=== PATIENT | male | born 1995 | race Hispanic/Latino ===

== ENCOUNTER 2021-09-12 20:31 | Emergency (ER) | payer BC, SELFPAY ==
[2021-09-12 21:00] VITALS: BP 156/97; PULSE 68; RESP 18; TEMP 36.6; O2SAT 100; BMI 32.3
--- NOTE | 2021-09-12 21:50 | ED_ITS ---
HPI - Headache General Chief Complaint: Headache Stated Complaint: BP High Time Seen by Provider: 09/12/21 21:30 Mode of arrival: Ambulatory Limitations: no limitations History of Present Illness HPI Narrative: This is a 26-year-old male comes to the emergency department with complaint of headache that was sudden onset about an hour prior to arrival. He has had a history of migraines but he states usually they are little bit more gradual. It is on the side side is migraine but is a bit more intense. He also states he usually gets speckles or vision changes prior to his migraines which he did not today. He did not have any syncope he has not any fevers. He does not have any vision changes. No difficulty with speech. No new numbness, tingling or weakness. Patient has some residual tingling in his right arm after having inj ury and surgical repair to that arm. He has not had any changes with gait. He did have some nausea and vomiting. He denies chest pain or shortness of breath. No bowel or bladder incontinence. No other GI or urinary symptoms. Has a history of hypertension since age 6 and was possibly an Arb with hydrochlorothiazide combination. Patient does not recall the exact medication. He has been out of it for several months. He did have a return to work physical with quite a bit of lab work and evaluation and was cleared to return to work. He states he was prescribed medication for his hypertension at this time but has not filled it since. Patient states no other surgeries. No allergies to m edications besides lisinopril. No tobacco, occasional alcohol on a once weekly basis. THC but no other illicit. He is accompanied by his . He states he does not have any other known comorbidities or disease process from his hypertension with no visual or retinopathy or renal history. Related Data Previous Rx's Medication Instructions Recorded hydrochlorothiazide 25 mg tablet 25 mg PO DAILY #30 tab 09/13/21 Allergies Allergy/AdvReac Type Severity Reaction Status Date / Time lisinopril AdvReac Verified 09/12/21 21:05 Review of Systems Review of Systems ROS Unobtainable: All systems reviewed & are unremarkable except as noted in HPI and below Patient History Social History Smoking Status: Never smoker Smoking Status: Never smoker alcohol intake frequency: 0-2 drinks per day Substance Use Type: marijuana Exam Narrative Exam Narrative: GEN: well nourished, well appearing male, alert and oriented x 3, patient appears to be in mild distress. HEENT: Atraumatic, pupils are equal round reactive to light, extraocular movements are intact, mild photophobia, nares are clear, TMs are clear with no fluid, there is no conjunctival pallor. Throat is clear without any exudates, erythema, tonsillar enlargement or uvular deviation, no facial droop. Full range of motion. Negative Kernig's and Brudzinski. HEART: Regular rate and rhythm without murmur, clicks, rubs. LUNGS:Lungs clear to auscultation, no wheezes, rales, crackles, chest moves symmetrically ABD:bowel sounds normal, soft, non-tender, no guarding, rebound, rigidity, no masses noted, no hepatosplenomegaly :No CVA tenderness MSCL: Non-tender, no muscle atrophy, muscles strength 5/5 upper and lower extremities, full range of motion, normal gait NEURO:CN 2-12 intact, sensation normal, reflexes 2/4 upper and lower extremities . finger nose finger test normal, heel persaud test normal, romberg normal SKIN: No rash or skin changes. Initial Vital Signs Initial Vital Signs: Vital Signs Temperature 97.8 F 09/12/21 21:00 Pulse Rate 68 09/12/21 21:00 Respiratory Rate 18 09/12/21 21:00 Blood Pressure 156/97 H 09/12/21 21:00 Pulse Oximetry 100 09/12/21 21:00 Scores GCS [place] coma scale eye opening: Spontaneous [place] coma scale verbal response: Orientated [place] coma scale motor response: Obey commands [place] coma scale total score: 15 Course Orders Ordered: ED Orders 09/12/21 21:45 Basic Metabolic Panel Stat Complete Blood Count AUTO DIFF Stat 09/12/21 22:21 CT angio head and neck Stat 09/13/21 00:15 COVID19 -Nasal swab/Pre-Proc Stat Discontinued Medications Dexamethasone (Dexamethasone 10 Mg/Ml Vial) 10 mg IV NOW ONE Stop: 09/12/21 22:22 Last Admin: 09/12/21 23:40 Dose: 10 mg Documented by: VIOLETA Hydrochlorothiazide (Hydrochlorothiazide 25 Mg Tablet) 25 mg PO NOW ONE Stop: 09/12/21 22:24 Last Admin: 09/12/21 23:40 Dose: 25 mg Documented by: VIOLETA Sodium Chloride (Normal Saline 0.9%) 1,000 mls @ 1,000 mls/hr IV BOLUS ONE Stop: 09/12/21 23:20 Last Infusion: 09/13/21 00:40 Dose: 0 mls/hr Documented by: Admin: 09/12/21 23:40 Dose: 1,000 mls/hr Documented by: VIOLETA Ketorolac Tromethamine (Ketorolac 30 Mg/Ml Vial) 30 mg IV NOW ONE Stop: 09/12/21 23:20 Last Admin: 09/12/21 23:39 Dose: 30 mg Documented by: VIOLETA Metoclopramide HCl (Metoclopramide 10 Mg/2 Ml Inj) 10 mg IV NOW ONE Stop: 09/12/21 22:22 Last Admin: 09/12/21 23:40 Dose: 10 mg Documented by: VIOLETA Reevaluation(s) Reevaluation #1: patient still has headache. Reviewed labs and imaging. CT angio was negative. Patient was given Toradol. Reevaluation #2: Patient feels much improved. He had improvement of his blood pressure but then increased back to same range. He is unsure exactly what medication he was on but is open to at least restarting hydrochlorothiazide. Time: 00:41 Vital Signs Vital signs: Vital Signs - 8 hr 09/12/21 21:00 09/12/21 23:38 09/12/21 23:39 Temperature 97.8 F Pulse Rate 68 72 69 Respiratory Rate 18 Blood Pressure 156/97 H 134/76 Pulse Oximetry 100 99 99 09/13/21 00:36 09/13/21 01:02 Temperature Pulse Rate 70 85 Respiratory Rate 18 16 Blood Pressure 162/94 H 136/72 Pulse Oximetry 100 98 MDM - Headache Lab Data Result diagrams: 09/12/21 21:45 09/12/21 21:45 Labs: Lab Results 09/12/21 09/12/21 09/13/21 Range/Units 21:45 21:45 00:15 WBC 11.7 H (4.5-11.0) X10^3/uL RBC 5.02 (4.5-5.9) X10^6/uL Hgb 15.4 (13.5-17.5) g/dL Hct 44.5 (41-53) % MCV 88.6 (80-100) fL MCH 30.7 (26-34) PG MCHC 34.6 (30-36) % RDW 12.8 (11.6-14.8) % Plt Count 282 (150-400) X10^3/uL Neut % (Auto) 86.6 H (50-75) % Lymph % (Auto) 8.8 L (25-40) % [place] % (Auto) 3.5 (3-14) % Eos % (Auto) 0.7 L (2-4) % Baso % (Auto) 0.4 (0-2) % Neut # (Auto) 05871 H (0417-2985) /uL Lymph # (Auto) 1000 L (8437-0314) /uL [place] # (Auto) 400 (0-900) /uL Eos # (Auto) 100 (0-450) /uL Baso # (Auto) 0 (0-100) /uL Sodium 138 (137-145) mmol/L Potassium 3.8 (3.4-5.1) mmol/L Chloride 102 (98-107) mmol/L Carbon Dioxide 30 (22-32) mmol/L BUN 17 (9-20) mg/dL Creatinine 0.85 (0.66-1.25) mg/dL Estimated GFR > 60.0 (>60) mL/min BUN/Creatinine Ratio 20.0 (6-22) Glucose 115 H (70-100) mg/dL Calcium 10.0 (8.4-10.2) mg/dL SARS-CoV-2 (PCR) Negative (Negative) Imaging Data CTA - brain/neck: Radiologist's Impression: [address] [address] [address] Scan Report Signed Patient: Ravi Awad MR#: [id number] : 1995 Acct:[id number] Age/Sex: 26 / M Date of Service: 09/12/21 Loc: ED Accession Number: [id number] ?? Procedure: CT angio head and neck Ordering Provider: Lacey Wood D.O. PROCEDURE:? CT ANGIO HEAD AND NECK ? INDICATIONS:? beaver, sudden onset, htn hx since age 6 ? TECHNIQUE:? Pre-contrast 4.5 mm thick sections acquired from the foramen magnum to the vertex.? After the administration of intravenous contrast, 1 mm thick sections acquired from the aortic arch through the [place] of [place].? Post-contrast 4.5 mm thick sections then re- acquired from the foramen magnum to the vertex.? 3-dimensional maximum-intensity- projection (MIP) and/or volume rendering reformats were acquired of the central intracranial vasculature and neck separately. ? COMPARISON:? None. ? FINDINGS:? Image quality:? Excellent.? ? BRAIN:? CSF spaces:? Basal cisterns are patent.? No extra-axial fluid collections.? Ventricles are normal in size and shape.? ? Brain:? No intracranial hemorrhage, mass, or mass effect.? Scott-white matter interface appears preserved.? No abnormal intracranial enhancement. ? Skull and face:? Calvarium and facial bones appear intact, without suspicious lesions.? Orbits appear normal.? ? Sinuses:? Sinuses and mastoids are clear.? ? HEAD CT ANGIOGRAPHY:? Anterior circulation:? Intracranial internal carotid arteries are normal in size and appear patent bilaterally.? The paired anterior cerebral arteries appear patent bilaterally.? The anterior communicating artery also appears patent. The middle cerebral arteries appear patent bilaterally.? No high-grade stenosis, occlusion, or filling defects.? No cerebral aneurysms identified. ? Posterior circulation:? Visualized portions of the vertebral arteries d emonstrate normal caliber, and join to form a patent basilar artery.? The posterior cerebral arteries appears patent bilaterally.? No high-grade stenosis, occlusion, or filling defects.? No cerebral aneurysms identified. ? NECK CT ANGIOGRAPHY:? Carotid system:? The great vessels demonstrate a conventional anatomy as they arise from the aortic arch.? The origins of the common carotid arteries appear patent.? The common carotid arteries demonstrate normal caliber and courses.? The bifurcation scarlet ons are both widely patent.? The internal carotid arteries demonstrate normal calibers and courses.? ? Posterior circulation:? The origins of the vertebral arteries both appear patent.? The more superior extracranial portions of both vertebral arteries also demonstrate normal courses and calibers.? They join to form a patent basilar artery.? ? Soft tissues:? Visualized neck soft tissues demonstrate no suspicious abnormalities.? ? Bones:? No suspicious bony lesions.? Visualized cervical spine demonstrates straightening of the cervical lordosis.? ? ? IMPRESSION:? ? 1. No acute intracranial abnormality. ? 2. No intracranial aneurysm identified. ? 3. No high-grade stenosis or occlusion of the head and neck arteries or central intracranial arteries.? ? Any quantitative measurements of stenosis were performed using NASCET criteria.? ? ? Dictated by: Giuliano Real M.D. on 09/12/2021 at 23:10 ? ? Approved by: Giuliano Real M.D. on 09/12/2021 at 23:15?? MDM Narrative Medical decision making narrative: This is a 26-year-old female comes on with sudden onset of headache, hypertension which is chronic and persistent since age of 6 which has not been treated recently. Patient does have a history of migraines the location is typical but the fast onset is atypical and it is somewhat stronger than normal. He has had some nausea and vomiting. No fevers or other suspicious infectious causes appreciated, no acute neurologic changes he does have a history of migraine Patient's labs are negative. Patient presented within [address] head and neck angio are negative for obvious bleed, aneurysm or other jose angel or changes. I suspect that patient is having a migraine. He responded well to Reglan, Toradol and fluids. He was given a dose of hydrochlorothiazide he knows he took some had a blood pressure medication that was a combination of HCTZ and another medication. Return precautions discussed all questions answered. Discharge Plan Departure Patient Disposition: Home Clinical Impression: Headache, Hypertension Instructions: DI for Headache Activity Restrictions/Additional Instructions: Follow-up with your physician for recheck. It's important for you to take your blood pressure medication regularly as allowing it to be elevated over long periods of time will slowly cause injury to the blood vessels in your brain, heart and kidneys. I would recommend restarting your blood pressure medication. Prescription for hydrochlorothiazide was sent to [facility] Please return for severe headaches, lightheadedness or passing out, persistent vomiting, new numbness, tingling or weakness, or other new or concerning symptoms. Prescriptions: New hydrochlorothiazide 25 mg tablet 25 mg PO DAILY Qty: 30 0RF Stand Alone Forms: Work Release Note
--- NOTE | 2021-09-12 22:21 | DI.CT.S_ITS ---
PROCEDURE: CT ANGIO HEAD AND NECK INDICATIONS: beaver, sudden onset, htn hx since age 6 TECHNIQUE: Pre-contrast 4.5 mm thick sections acquired from the foramen magnum to the vertex. After the administration of intravenous contrast, 1 mm thick sections acquired from the aortic arch through the [place] of [place]. Post-contrast 4.5 mm thick sections then re-acquired from the foramen magnum to the vertex. 3-dimensional yvjaiyg-rzxtaejki-lnkjrjbbfx (MIP) and/or volume rendering reformats were acquired of the central intracranial vasculature and neck separately. COMPARISON: None. FINDINGS: Image quality: Excellent. BRAIN: CSF spaces: Basal cisterns are patent. No extra-axial fluid collections. Ventricles are normal in size and shape. Brain: No intracranial hemorrhage, mass, or mass effect. Scott-white matter interface appears preserved. No abnormal intracranial enhancement. Skull and face: Calvarium and facial bones appear intact, without suspicious lesions. Orbits appear normal. Sinuses: Sinuses and mastoids are clear. HEAD CT ANGIOGRAPHY: Anterior circulation: Intracranial internal carotid arteries are normal in size and appear patent bilaterally. The paired anterior cerebral arteries appear patent bilaterally. The anterior communicating artery also appears patent. The middle cerebral arteries appear patent bilaterally. No high-grade stenosis, occlusion, or filling defects. No cerebral aneurysms identified. Posterior circulation: Visualized portions of the vertebral arteries demonstrate normal caliber, and join to form a patent basilar artery. The posterior cerebral arteries appears patent bilaterally. No high-grade stenosis, occlusion, or filling defects. No cerebral aneurysms identified. NECK CT ANGIOGRAPHY: Carotid system: The great vessels demonstrate a conventional anatomy as they arise from the aortic arch. The origins of the common carotid arteries appear patent. The common carotid arteries demonstrate normal caliber and courses. The bifurcation regions are both widely patent. The internal carotid arteries demonstrate normal calibers and courses. Posterior circulation: The origins of the vertebral arteries both appear patent. The more superior extracranial portions of both vertebral arteries also demonstrate normal courses and calibers. They join to form a patent basilar artery. Soft tissues: Visualized neck soft tissues demonstrate no suspicious abnormalities. Bones: No suspicious bony lesions. Visualized cervical spine demonstrates straightening of the cervical lordosis. IMPRESSION: 1. No acute intracranial abnormality. 2. No intracranial aneurysm identified. 3. No high-grade stenosis or occlusion of the head and neck arteries or central intracranial arteries. Any quantitative measurements of stenosis were performed using NASCET criteria. Dictated by: Giuliano Real M.D. on 09/12/2021 at 23:10 Approved by: Giuliano Real M.D. on 09/12/2021 at 23:15
[2021-09-12 22:31] LABS: Add Manual Diff / Slide Review NO; Basophils Absolute Auto 0 /uL (0-100); Basophils Percent Auto 0.4 % (0-2); Eosinophils Absolute Auto 100 /uL (0-450); Eosinophils Percent Auto 0.7 % (2-4); Hematocrit 44.5 % (41-53); Hemoglobin 15.4 g/dL (13.5-17.5); Lymphocytes Absolute Auto 1000 /uL (1100-4500); Lymphocytes Percent Auto 8.8 % (25-40); Mean Corpuscular HGB Conc 34.6 % (30-36); Mean Corpuscular Hemoglobin 30.7 PG (26-34); Mean Corpuscular Volume 88.6 fL (80-100); Monocytes Absolute Auto 400 /uL (0-900); Monocytes Percent Auto 3.5 % (3-14); Neutrophils Absolute Auto 10200 /uL (1500-7000); Neutrophils Percent Auto 86.6 % (50-75); Platelet Count 282 X10^3/uL (150-400); Red Blood Cell Count 5.02 X10^6/uL (4.5-5.9); Red Cell Distribution Width 12.8 % (11.6-14.8); White Blood Cell Count 11.7 X10^3/uL (4.5-11.0)
[2021-09-12 22:35] LABS: Blood Urea Nitrogen 17 mg/dL (9-20); Carbon Dioxide 30 mmol/L (22-32); Chloride 102 mmol/L (98-107); Estimated Glomerular Filt Rate > 60.0 mL/min (>60); Glucose 115 mg/dL (70-100); HEMOLYSIS < 15 (0-50); Potassium 3.8 mmol/L (3.4-5.1); Sodium 138 mmol/L (137-145)
[2021-09-12 23:38] VITALS: PULSE 72; O2SAT 99
[2021-09-12 23:39] VITALS: BP 134/76; PULSE 69; O2SAT 99
[2021-09-12] MEDS: KETOROLAC 30 MG/ML VIAL IV (23:39)
[2021-09-12] MEDS: METOCLOPRAMIDE 10 MG/2 ML INJ IV (23:40)
[2021-09-12] MEDS: DEXAMETHASONE 10 MG/ML VIAL IV (23:40)
[2021-09-12] MEDS: SODIUM CHLORIDE 0.9% 1,000 ML 1000 ML IV (23:40)
[2021-09-12] MEDS: hydroCHLOROthiazide 25 MG TABLET PO (23:40)
[2021-09-13 00:36] VITALS: BP 162/94; PULSE 70; RESP 18; O2SAT 100
[2021-09-13 00:52] LABS: COVID19 -Nasal RAPID Negative (Negative)
[2021-09-13 01:02] VITALS: BP 136/72; PULSE 85; RESP 16; O2SAT 98
== END 2021-09-13 00:50 | disposition home or self-care (01) ==
PROVIDERS: Emergency Provider Emergency Medicine
DX: R51.9 Headache, unspecified (principal); I10 Essential (primary) hypertension; Z20.822 Contact with and (suspected) exposure to COVID-19
CPT/HCPCS: 36415; 70496; 70498; 80048; 85025; 87635; 96361; 96374; 96375; 99284; C9803; J1100; J1885; J2765; Q9967

== ENCOUNTER 2022-07-20 17:30 | Emergency (ER) | payer SELFPAY ==
[2022-07-20 17:47] VITALS: BP 149/96; PULSE 79; RESP 20; TEMP 36.6; O2SAT 100
--- NOTE | 2022-07-20 23:22 | ED.BACK ---
HPI - Back Pain/Injury General Chief Complaint: Back Pain/Injury Stated Complaint: back pain, no known injury Time Seen by Provider: 07/20/22 23:22 Source: patient History of Present Illness HPI Narrative: Patient is a 27-year-old male history of hypertension but not taking medication presenting today with right-sided back pain radiating down his leg ongoing for about 1-2 days. He denies any injury. He has no prior history of back problems. He denies any changes in bowel or bladder habits. He has been taking Tylenol and ibuprofen around the clock without any significant relief. Related Data Previous Rx's Medication Instructions Recorded hydrochlorothiazide 25 mg tablet 25 mg PO DAILY #30 tabs 09/13/21 cyclobenzaprine 5 mg tablet 5 mg PO TID PRN muscle spasm #10 07/20/22 tabs hydrocodone 5 mg-acetaminophen 325 1 tab PO Q6H PRN pain #10 tabs 07/20/22 mg tablet Allergies Allergy/AdvReac Type Severity Reaction Status Date / Time lisinopril AdvReac Verified 09/12/21 21:05 Review of Systems Review of Systems Narrative: GENERAL: Denies chills,fever HEENT: Denies throat pain RESPIRATORY: Denies dyspnea, cough, wheezing CARDIOVASCULAR: Denies chest pain, palpitations GASTROINTESTINAL: Denies nausea, vomiting MUSCULOSKELETAL: See HPI SKIN: No rash, no laceration, no pruritus NEUROLOGIC: Denies weakness, dizziness, headache, numbness 8 point review of systems is negative except for those stated above and HPI Patient History Social History Smoking Status: Never smoker Smoking Status: Never smoker alcohol intake frequency: 0-2 drinks per day Substance Use Type: marijuana Exam Initial Vital Signs Initial Vital Signs: Vital Signs Temperature 97.9 F 07/20/22 17:47 Pulse Rate 79 07/20/22 17:47 Respiratory Rate 20 07/20/22 17:47 Blood Pressure 149/96 H 07/20/22 17:47 Pulse Oximetry 100 07/20/22 17:47 Oxygen Delivery Method 07/20/22 17:47 GENERAL: Well-appearing, well-nourished and in no acute distress. CARDIOVASCULAR: peripheral pulses in tact, cap refill <2 sec RESPIRATORY: No respiratory distress, speaks in full sentences without difficulty BACK: No vertebral tenderness no step-offs pain right lower lumbar EXTREMITIES: Normal range of motion, no clubbing or edema. Neurovascularly intact NEUROLOGICAL: Cranial nerves II through XII grossly intact. Normal gait and speech. SKIN: Warm, dry, no petechiae, no rashes or lesions. Course Orders Ordered: Discontinued Medications Hydrocodone Bitart/Acetaminophen (Hydrocodone/Acet 5/325 Prepack) 1 bottle MIS SEEINSTR ONE Stop: 07/20/22 23:46 Last Admin: 07/21/22 00:03 Dose: 1 bottle Documented By: JUSTIN Diazepam (Diazepam 5 Mg Tablet) 5 mg PO NOW ONE Stop: 07/20/22 23:45 Last Admin: 07/21/22 00:03 Dose: 5 mg Documented By: JUSTIN Ketorolac Tromethamine (Ketorolac 30 Mg/Ml Vial) 30 mg IM NOW ONE Stop: 07/20/22 23:45 Last Admin: 07/21/22 00:03 Dose: 30 mg Documented By: JUSTIN Vital Signs Vital signs: Vital Signs - 8 hr 07/21/22 00:05 Temperature 97.8 F Pulse Rate 68 Respiratory Rate 19 Blood Pressure 138/94 H Pulse Oximetry 100 Oxygen Delivery Method Room Air MDM - Back Pain/Injury MDM Narrative Medical decision making narrative: Patient has ongoing back pain overall appears mildly comfortable no midline tenderness. Probable pain with sciatica. He denies any injury. No change in bowel or bladder habits her signs of cauda equina. He is afebrile has well. Noncompliant with his blood pressure. Discharge Plan Departure Patient Disposition: Home Clinical Impression: Strain of lumbar region Instructions: DI for Back Pain With Sciatica Activity Restrictions/Additional Instructions: *You have been diagnosed with back pain with sciatica *What to do: Light activities encouraged to no strenuous activity or heavy lifting. Light stretching is encouraged. If you continue to have pain you may require an outpatient MRI. Please discuss this with her PCP. *Continue to take medications as directed--> SENT TO [facility] [place] Ibuprofen 600 mg every 6 hours if needed for bxin-yo-qdtryojd pain [place] 1 tablet every 6 hours if needed for severe pain Cyclobenzaprine 5 mg every 8 hours if needed for muscle spasm *Follow up with your primary care provider in 2-3 days or call [phone] *Return to ER if you should have increasing back pain weakness numbness loss of stool or urine or any new, worsening or concerning symptoms CONTROLLED SUBSTANCE DISCHARGE (Narcotoic/benzodiazepine/Flexeril/Phenergan) 1. You have been prescribed narcotic medications, it does have acetaminophen/Tylenol/paracetamol in it, DO NOT TAKE MORE THAN 4,00mg in 24 hours of Tylenol. TRAMADOL DOES NOT CONTAIN TYLENOL 2. Please understand that we cannot provide further refills of narcotics, benzodiazepines or controlled substances through the ED and her pain management will need to be through your provider. 3. While on these medications you cannot drive or operate heavy machinery. 4. You cannot sign legal documents or perform any duties such as this. 5. As long as you're taking opiate pain medications he should also be taking a stool softener such as Colace, Dulcolax, MiraLAX or prune juice, to help avoid constipation. Prescriptions: New hydrocodone-acetaminophen 5-325 mg tablet 1 tab PO Q6H PRN (Reason: pain) Qty: 10 0RF cyclobenzaprine 5 mg tablet 5 mg PO TID PRN (Reason: muscle spasm) Qty: 10 0RF No Action hydrochlorothiazide 25 mg tablet 25 mg PO DAILY Qty: 30 0RF Visit Report Forms: Patient Portal/API
[2022-07-21] MEDS: diazePAM 5 MG TABLET PO (00:03)
[2022-07-21] MEDS: KETOROLAC 30 MG/ML VIAL IM (00:03)
[2022-07-21] MEDS: HYDROCODONE/ACET 5/325 PREPACK 1 BOTTLE MISC (00:03)
[2022-07-21 00:05] VITALS: BP 138/94; PULSE 68; RESP 19; TEMP 36.6; O2SAT 100
== END 2022-07-21 00:28 | disposition home or self-care (01) ==
PROVIDERS: Emergency Provider Emergency Medicine
DX: S39.012A Strain of muscle, fascia and tendon of lower back, initial encounter (principal)
CPT/HCPCS: 96372; 99283; J1885